=== PATIENT | male | born 1965 | race Caucasian/White ===

== ENCOUNTER 2022-07-08 11:58 | Outpatient (CLI) | payer BC ==
[~2022-07-08] VITALS: Ht 175.3 cm; Wt 73.2 kg
[2022-07-09] MEDS ORDERED: HYDR-3817 PO (12:13)
== END 2022-07-08 13:26 | disposition home or self-care (01) ==
LOC: PREOP 11:58
PROVIDERS: ATTEND Surgery
DX: Z01.818 Encounter for other preprocedural examination (principal)

== ENCOUNTER 2022-07-09 11:36 | Day surgery (SDC) | payer BC ==
[2022-07-09] VITALS (10 sets, daily range): BP systolic 116–151; BP diastolic 72–95
[~2022-07-09] VITALS: Ht 175.3 cm; Wt 73.0 kg
[2022-07-09] MEDS ORDERED: BUP/EPI 0.5% 1:200,000 (SENSORCAINE) 30 ML VIAL ONE (11:58)
--- NOTE | 2022-07-09 12:12 | Progress Note-Pre Operative ---
Pre-Operative Progress Note Date H&P Reviewed: Jul 09, 2022 Time H&P Reviewed: 12:11 History & Physical: H&P Reviewed, Patient Examed, No changes noted Pre-Operative Diagnosis: Chronic calculous cholecystitis JILLIAN ROWAN [facility]IST[facility] Jul 09, 2022 12:12
[2022-07-09] MEDS ORDERED: HYDR-3817 PO (12:13)
--- NOTE | 2022-07-09 12:13 | Discharge Inst-Surgical ---
D/C Lap Instructions-KIDO Reconcile Patient Problems Problems Reviewed?: Yes New, Converted, or Re-Newed RX: RX on Chart Follow Up Appt in 2 weeks Activity as tolerated No driving for 24 hours No driving while on pain medications Incentive Spirometry use every 2 hours while awake Regular Diet Symptoms to Report: Fever over 101 degree F, Nausea/Vomiting Infection Signs and Symptoms to report: Increased redness, Foul odor of wound, Increased drainage Bathing instructions: May shower Operative Area Clean/Dry; Keep incision clean/dry If any problems/questions: Contact your physician or go to Emergency Room JILLIAN ROWAN APRN Jul 09, 2022 12:13
[2022-07-09] MEDS ORDERED: ACETAMINOPHEN 325 MG TABLET PO PRN (12:15)
[2022-07-09] MEDS ORDERED: CLINDAMYCIN 600 MG/50 ML IVPB 50 ML IV NR (12:15)
[2022-07-09] MEDS ORDERED: ONDANSETRON 4 MG/2 ML (SDV) Z0FRAN IVP PRN ×2 (12:15→14:15)
[2022-07-09] MEDS ORDERED: morphine INJ 10 MG/ML 1ML (SYR OR VIAL) IVP PRN (12:15)
[2022-07-09] MEDS ORDERED: HYDROcodone/APAP 5 MG/325 MG (LORTAB) TAB PO ONE (12:15)
[2022-07-09] MEDS ORDERED: MIDAZOLAM 2 MG/2 ML (VERSED) VIAL ONE (12:24)
[2022-07-09] MEDS ORDERED: LIDOCAINE PF 2% 5 ML (XYLOCAINE) VIAL ONE (12:24)
[2022-07-09] MEDS ORDERED: ROCURONIUM 50 MG/5 ML (ZEMURON) VIAL IV ONE (12:24)
[2022-07-09] MEDS ORDERED: fentaNYL INJ 100 MCG/2 ML AMP ONE ×2 (12:24→14:15)
[2022-07-09] MEDS ORDERED: proPOfol 200 MG/20 ML (DIPRIVAN) VIAL IV ONE (12:24)
[2022-07-09] MEDS ORDERED: ONDANSETRON 4 MG/2 ML (SDV) Z0FRAN ONE (12:24)
[2022-07-09] MEDS: LACTATED RINGERS 1,000 ML IV PRN ×2 (12:54→13:43)
[2022-07-09] MEDS ORDERED: CLINDAMYCIN 600 MG/50 ML IVPB 50 ML IV ONE (13:00)
[2022-07-09] MEDS ORDERED: PHENYLEPHRINE 100 MCG/ML 10 ML (ANESTHESIA) SYR ONE (13:37)
[2022-07-09] MEDS ORDERED: GLYCOPYRROLATE 0.2 MG/ML (ROBINUL) 2 ML VIAL ONE (13:57)
[2022-07-09] MEDS ORDERED: NEOSTIGMINE 3 MG/3 ML VIAL ONE (13:57)
[2022-07-09] MEDS ORDERED: SEVOFLURANE (ULTANE) 15 ML INHAL SOLN ONE (13:58)
--- NOTE | 2022-07-09 14:03 | Progress Note-Post Operative ---
Post-Operative Progess Note Surgeon (s)/Director Of Tax Services (s) Surgeon SHEFALI BEST MD Director Of Tax Services: tomer carney [employer] VICE PRESIDENT Pre-Operative Diagnosis Chronic calculous cholecystitis Post-Operative Diagnosis same Procedure & Operative Findings Date of Procedure 07/09/22 Procedure Performed/Findings laparoscopic cholecystectomy Anesthesia Type get Estimated Blood Loss Estimated blood loss (mL): minimal Specimens/Packing Specimens Removed gallbladder SHEFALI BEST MD Jul 09, 2022 14:03
[2022-07-09] MEDS ORDERED: HYDROmorphone 2 MG/ML VIAL (DILAUDID) IV ONE (14:15)
[2022-07-09] MEDS ORDERED: PROMETHAZINE INJ 25 MG/ML (PHENERGAN) AMP IVP ONE (14:15)
[2022-07-09] MEDS ORDERED: MEPERIDINE (DEMEROL) INJ 50 MG/ML IVP ONE (14:15)
[2022-07-09] MEDS ORDERED: fentaNYL INJ 100 MCG/2 ML AMP IVP ONE (14:15)
--- NOTE | 2022-07-09 14:15 | Anesthesia-General Post-Op ---
General Patient Condition Mental Status/LOC: Same as Preop Cardiovascular: Satisfactory Nausea/Vomiting: Absent Respiratory: Satisfactory Pain: Controlled Complications: Absent Post Op Complications Complications None Follow Up Care/Instructions Patient Instructions None needed. Anesthesia/Patient Condition Patient Condition Patient is doing well, no complaints, stable vital signs, no apparent adverse anesthesia problems. No complications reported per nursing. BRIT DELAROSA CRNA Jul 09, 2022 14:15
[2022-07-09] MEDS ORDERED: HYDROcodone/APAP 5 MG/325 MG (LORTAB) TAB ONE (15:14)
--- NOTE | 2022-07-09 21:53 | OPERATIVE REPORT ---
DATE OF SERVICE: 07/09/2022 ATTENDING PRIMARY CARE PHYSICIAN: Gregory Freeman DO PREOPERATIVE DIAGNOSIS: Symptomatic chronic calculous cholecystitis. POSTOPERATIVE DIAGNOSIS: Symptomatic chronic calculous cholecystitis. PROCEDURE: Laparoscopic cholecystectomy. SURGEON: Shefali Best MD [employer] OPERATOR: Mauri Fofana APRN ANESTHESIA: General endotracheal. ESTIMATED BLOOD LOSS: Minimal. FINDINGS: Hepatomegaly with a mild liver steatosis, multiple gallstones. DISPOSITION: The patient tolerated the procedure well. INDICATIONS: The patient is a 57-year-old male who presented to [facility] Emergency Department with acute onset of pain in the right upper abdominal quadrant associated with nausea and anorexia. He underwent ultrasound, which did show multiple gallstones. Upon further questioning, he had reported that he has had some issues similar to this in the past year; however, not as severe. The patient stated that he was in a significant amount of pain and wanted to have the surgery as soon as possible. His laboratory work besides a slightly elevated white count was normal including liver function enzymes. DESCRIPTION OF PROCEDURE: The patient was brought to the operating room, laid supine on the table. After adequate IV pain and sedative medications and general endotracheal intubation, the abdomen was prepped and draped in standard surgical fashion. A 0.5% Marcaine with epinephrine was then used to anesthetize the overlying skin in the left upper abdominal quadrant and a transverse skin incision made using a #15 blade. A 4-quadrant abdominal exploration was performed. There was liver steatosis and a slightly distended gallbladder. There was no gallbladder wall thickening. Under direct visualization, we then proceeded to place a supraumbilical 10 mm port after the skin and peritoneal lining were anesthetized using 0.5% Marcaine with epinephrine and a transverse skin incision made using a #15 blade. In a similar manner, a right upper abdominal quadrant 5 mm port was placed. The fundus of the gallbladder was then retracted anteriorly and superiorly. The hepatoduodenal ligament was then dissected using blunt dissection as well as electrocautery on the hook instrument as well as the [place] dissector. The entire critical view of safety was identified including the triangle of Calot as well as the cystic duct and artery as the only 2 structures going into the gallbladder as well as the cystic plate behind the proximal gallbladder. A timeout was then taken and the cystic duct and artery were then clipped proximally and distally and cut with EndoShears. The gallbladder was then dissected off the liver bed using cautery with visualization of good hemostasis as well as no leaking in ducts of Luschka. The gallbladder was removed through the 10 mm port site using an EndoCatch bag. The 10 mm port site fascia and peritoneum were then closed under direct visualization using a Slava-Latisha device and an 0 Vicryl suture. The abdomen was desufflated and the remaining ports were removed. All skin incisions were closed using 4-0 Monocryl running subcuticular sutures. Wounds were then cleaned and covered with Dermabond. The patient tolerated the procedure well. We will start IV and oral pain medication as well as a clear liquid diet. Once he is tolerating clears, has good pain control with oral pain medications, ambulating well, we will discharge him home where he will be instructed to do no heavy lifting or exertion for the next 2 weeks. Job ID: [id number] DocumentID: [id number] Dictated Date: 07/09/2022 14:09:09 Maintenance Planner Date: 07/09/2022 21:51:00 Dictated By: SHEFALI BEST MD
== END 2022-07-09 16:22 | disposition home or self-care (01) ==
LOC: SDC 11:36
PROVIDERS: ATTEND Surgery
DX: K80.10 Calculus of gallbladder with chronic cholecystitis without obstruction (principal); K76.0 Fatty (change of) liver, not elsewhere classified; K82.8 Other specified diseases of gallbladder
CPT/HCPCS: 87081